=== PATIENT | male | born 1945 | race Caucasian/White ===

== ENCOUNTER → 2023-04-17 13:34 | Outpatient (REF) | payer MEDICARE, BC, SELFPAY | LOC: RAD 13:34 | PROVIDERS: ATTENDING PHYSICIAN Emergency Medicine; FAMILY PHYSICIAN Family Medicine | DX: S63.641A Sprain of metacarpophalangeal joint of right thumb, initial encounter (principal); S20.229A Contusion of unspecified back wall of thorax, initial encounter | CPT/HCPCS: 72072; 73140 ==

== ENCOUNTER 2023-09-21 19:06 | Emergency (ER) | payer MEDICARE, BC, SELFPAY ==
[2023-09-21 19:18] VITALS: BP 152/86
[2023-09-21 20:00] VITALS: BP 142/87
[2023-09-21 20:10] VITALS: BMI 23.1
[2023-09-21 22:11] LABS: % Basophils 0.5 % (0-2); % Eosinophils 1.5 % (0-6); % Immature Granulocytes 0.3 % (0-0.5); % Lymphocytes 9.9 % (20.5-51.1); % Neutrophils 80.8 % (42.2-75.2); Absolute Basophils 0.1 10^3/uL (0-0.2); Absolute Eosinophils 0.2 10^3/uL (0-0.7); Absolute Monocytes 0.7 10^3/uL (0.1-0.6); Absolute Neutrophils 8.3 10^3/uL (1.4-6.5); Hematocrit 37.1 % (39.0-52.0); Hemoglobin 12.6 g/dL (13.0-18.0); Mean Corpuscular Hgb 29.1 pg (27.0-31.0); Mean Corpuscular Volume 85.7 fL (80.0-94.0); Mean Platelet Volume 9.1 fL (7.4-10.4); Nucleated Red Blood Cells % 0 % (-); Platelet Count 201 10^3/uL (130-400); Red Blood Cell Count 4.33 10^6/uL (4.70-6.10); Urine Albumin Negative (Neg - Trace); Urine Bilirubin Negative (Negative); Urine Character Clear (Clear); Urine Color Yellow; Urine Glucose Negative (Negative); Urine Ketone Negative (Negative); Urine Leukocyte Negative (Negative); Urine Nitrite Negative (Negative); Urine Occult Blood Negative (Negative); Urine Specific Gravity 1.015 (<1.030); Urine Urobilinogen Negative (Neg - 1+); White Blood Cell Count 10.2 10^3/uL (4.8-10.8)
[2023-09-21 22:32] LABS: ALT (SGPT) 21 U/L (0-50); AST (SGOT) 31 U/L (17-59); Albumin 4.2 g/dl (3.5-5.0); Alkaline Phosphatase 75 U/L (38-126); Blood Urea Nitrogen 26 mg/dl (9-20); Carbon Dioxide 29 mmol/L (22-30); Chloride 105 mmol/L (98-107); Estimated Creatinine Clearance 62 ml/min; Glucose 127 mg/dl (70-99); Potassium 4.3 mmol/L (3.5-5.1); Sodium 138 mmol/L (135-145); Total Bilirubin 0.2 mg/dl (0.2-1.3); Total Protein 6.5 g/dl (6.3-8.2); eGFR > 60.00
--- NOTE | 2023-09-21 23:13 | ED.GENMED ---
History of Present Illness
General
Chief Complaint: Fall
Source: patient and spouse
Exam Limitations: dementia
Time Seen by Provider: 09/21/23 19:48
Nursing documentation reviewed up to this point in time: agreed with
History of Present Illness
History of Present Illness:
77-year-old male with Ana Lilia history of dementia hyperlipidemia presenting to the emergency department today after a fall he is unable to explain why he fell he does have short-term memory loss. This was not directly witnessed but the claims
that he she heard a thud that was in the room within a few seconds. He denies additional concerns at this point otherwise feels well.
Review of Systems
Review of Systems
Allergies reviewed?: Yes
All Other Systems: ROS reviewed and negative except as documented in HPI and ROS
Phy Exam
Physical Exam
Physical Exam:
GENERAL: Alert , in no apparent distress
EYE: pupils equal and reactive
NECK: Supple, no significant adenopathy.
ENT: o/p clr, mmm.
CARDIAC: Regular rate and rhythm .
LUNGS: Clear breath sounds bilaterally, no acute respiratory distress, no wheezes/rales/rhonchi
ABDOMEN: Soft, without focal tenderness, no r/g, no cvat
NEUROLOGICAL: Alert , no focal neuro deficits 5-5 upper and lower extremity strength normal sensation with palpating bilaterally normal finger-nose and glmt-kg-[id number] no pronator drift
SKIN: Warm and dry, skin intact.
MUSCULOSKELETAL: No edema, well perfused.
PSYCH: Normal and appropriate interaction.
Course
Orders/Labs/Results
Orders:
Orders
09/21/23 19:26
CT Cervical Spine W/o Iv Contr Urgent
Reason For Exam: fall
CT Head W/o Iv Contrast Urgent
Comment:
Reason For Exam: fall
09/21/23 21:45
EKG [Electrocardiogram (*1)] Urgent
Reason for Study: Syncope
09/21/23 21:46
EKG- Treatment ONCE
09/21/23 22:05
CBC/With Diff [Complete Blood Count/With Diff] Urgent
CMP [Comprehensive Metabolic Panel] Urgent
Urinalysis Reflex To Culture Urgent
Date Specimen was Collected: 09/21/23
Time Specimen was Collected: 22:02
Abnormal Lab Results
09/21/23
22:05
RBC 4.33 L 10^6/uL
(4.70-6.10)
Hgb 12.6 L g/dL
(13.0-18.0)
Hct 37.1 L %
(39.0-52.0)
Absolute Neuts (auto) 8.3 H 10^3/uL
(1.4-6.5)
Absolute Lymphs (auto) 1.0 L 10^3/uL
(1.2-3.4)
Absolute Monos (auto) 0.7 H 10^3/uL
(0.1-0.6)
Neutrophils % 80.8 H %
(42.2-75.2)
Lymphocytes % 9.9 L %
(20.5-51.1)
BUN 26 H mg/dl
(9-20)
Glucose 127 H mg/dl
(70-99)
09/21/23 22:05
09/21/23 22:05
Vital Signs
Initial and Last Documented VS:
Initial Vital Signs
Temp Pulse Resp BP Pulse Ox
98.5 F 60 18 152/86 97
09/21/23 19:18 09/21/23 19:18 09/21/23 19:18 09/21/23 19:18 09/21/23 19:18
Last Documented Vital Signs
Temp Pulse Resp BP Pulse Ox
98.5 F 60 18 142/87 96
09/21/23 19:18 09/21/23 20:00 09/21/23 20:09 09/21/23 20:00 09/21/23 19:59
MDM/Problems Addressed
MDM/Problems Addressed:
77-year-old male presenting to the emergency department today with concerns of ground-level fall. Unclear pretenses. Otherwise was feeling well just prior. On arrival here vital signs are normal patient in no distress no signs of significant
additional trauma labs potential dehydration otherwise labs unremarkable. Head CT and neck CT without emergent findings CT did show potential old lacunar infarct but no emergent findings. This was discussed thoroughly. Labs showing potential
dehydration with an elevated BUN to creatinine ratio otherwise labs unremarkable urinalysis normal. Patient well-appearing throughout ER stay stable for outpatient management return precautions given.
*Critical Care Note
Total Time (30-74mins, 75-104mins- exclusive of procedures): Not Applicable
ED Attending Note
-
Portions of this chart may have been created with voice recognition software.� Occasional wrong word or��sound alike� substitutions may have occurred due to the inherent limitations of voice recognition software.
Discharge Plan
Departure
Patient Disposition: Home (Routine Discharge)
Date of Disposition: 09/21/23
Time of Disposition: 23:20
Patient with high blood pressure during this ER visit?: No
Condition: Good
Covid-19: Not Applicable
Discharge Problem:
Fall, Dehydration
Instructions: Preventing falls in adults
Prescriptions:
No Action
ascorbic acid (vitamin C) [Vitamin C] 1,000 MG tablet
1,000 mg PO DAILY
niacin (inositol niacinate) [Niacin No Flush] 400 MG capsule
400 mg PO DAILY
cyanocobalamin (vitamin B-12) 1,000 MCG tablet
1,000 mcg PO DAILY
ibuprofen 400 MG tablet
400 mg PO PRN PRN (Reason: pain)
omega 0-pjc-ngd-fish oil [Fish Oil] 1 EACH capsule
2 ea PO DAILY
qy-unk-kunoc-M8-dxdixyz-awjhoh [Men 50 Plus Multivitamin] 1 EACH tablet
1 ea PO DAILY
Flaxseed
1 t PO DAILY
Glucosamine HCl/MSM
2 tab PO DAILY
sennosides [senna] 1 TABLET tablet
2 tab PO BID 0RF
acetaminophen 325 MG tablet
650 mg PO Q4HPRN PRN (Reason: for mild pain or fever >100.4F) 0RF
prednisone 10 MG tablet
10 mg PO ONCE Qty: 3 0RF
Rx Instructions:
tab 2 11 tab 1 11/29
magnesium hydroxide 30 ML suspension
30 ml PO DAILYPRN PRN (Reason: constipation) 0RF
aspirin 325 MG tablet,delayed release (DR/EC)
325 mg PO DAILY 0RF
docusate sodium 100 MG capsule
100 mg PO BID 0RF
alum-mag hydroxide-simeth [Mag-Al Plus] 30 ML suspension
30 ml PO Q4HPRN PRN (Reason: INDIGESTION) 0RF
oxycodone 5 MG tablet
1 - 2 tab PO Q4HPRN PRN (Reason: mod pain) Qty: 80 0RF
ibuprofen 200 MG tablet
400 mg PO Q6HPRN PRN (Reason: pain) Qty: 1 0RF
Referrals:
Rebceca Santa DO [Family Provider] -
Activity Restrictions/Additional Instructions:
You came to the emergency department today with concerns of a fall. Here you were found to be potentially dehydrated. Please stay hydrated at home and return to the emergency department for any worsening, new or concerning symptoms. Additionally
please follow closely with the neurologist
Interventions
Interventions:
*Risk Screen - Suicide Last Done: 09/21/23 19:18
*General Assessment Last Done: 09/21/23 19:18
*Neglect/Abuse Screening Last Done: 09/21/23 19:18
ED- Fall Risk Assessment Last Done: 09/21/23 19:18
*ED COVID-19 Vaccine History Last Done: 09/21/23 19:18
ED-Musculoskeletal Assessment Last Done: 09/21/23 20:08
ED- Neurological Assessment Last Done: 09/21/23 20:08
ED-Skin Assessment Last Done: 09/21/23 20:08
Discharge Date and Time
Print Language: DJIBOUTIAN
[2023-09-22] VITALS: BP 163/91
== END 2023-09-22 | disposition home or self-care (01) ==
LOC: EMR 19:06
PROVIDERS: Physician Assistant; EMERGENCY PHYSICIAN Emergency Medicine; FAMILY PHYSICIAN Family Medicine
DX: S09.90XA Unspecified injury of head, initial encounter (principal); E86.0 Dehydration; W19.XXXA Unspecified fall, initial encounter; F03.90 Unspecified dementia, unspecified severity, without behavioral disturbance, psychotic disturbance, mood disturbance, and anxiety; E78.5 Hyperlipidemia, unspecified
CPT/HCPCS: 99285; 70450; 72125; 80053; 81003; 85025; 93005

== ENCOUNTER 2024-06-08 14:16 | Emergency (ER) | payer OTHER, SELFPAY ==
[2024-06-08] MEDS: ADACEL 0.5 ML IM (15:51)
--- NOTE | 2024-06-08 15:58 | ED.GENMED ---
History of Present Illness
<Sal Baez Jr., PA-C - Last Filed: 06/08/24 16:42>
General
Chief Complaint: Fall
Source: patient, spouse and family
Exam Limitations: dementia
Time Seen by Provider: 06/08/24 14:42
Nursing documentation reviewed up to this point in time: agreed with
History of Present Illness
History of Present Illness:
78-year-old male with Ana Lilia history of Alzheimer's dementia, hyperlipidemia presenting to the emergency department after a fall that was not specifically witnessed though the was there at the scene and immediately able to help. He believes
that he lost his footing while gardening. He does have poor balance at baseline according to the and patient himself. Pain is only to the face. Does not take any blood thinners. Does have a mild headache. No neck pain. No numbness or
weakness. No chest pain no extremity discomfort.
Review of Systems
<Sal Baez Jr., PA-C - Last Filed: 06/08/24 16:42>
Review of Systems
Allergies reviewed?: Yes
All Other Systems: ROS reviewed and negative except as documented in HPI and ROS
Phy Exam
<Sal Baez Jr., PA-C - Last Filed: 06/08/24 16:42>
Physical Exam
Physical Exam:
GENERAL: Alert , in no apparent distress
EYE: pupils equal and reactive
NECK: Supple, no significant adenopathy.
ENT: 1 cm laceration V-shaped on the nasal bridge no nasal septal hematoma normal posterior pharynx o/p clr, mmm.
CARDIAC: Regular rate and rhythm .
LUNGS: Clear breath sounds bilaterally, no acute respiratory distress, no wheezes/rales/rhonchi
ABDOMEN: Soft, without focal tenderness, no r/g, no cvat
NEUROLOGICAL: Alert and oriented, no focal neuro deficits
SKIN: Warm and dry, skin intact.
MUSCULOSKELETAL: No edema, well perfused.
PSYCH: Normal and appropriate interaction.
Course
<Sal Baez Jr., PA-C - Last Filed: 06/08/24 16:42>
Orders/Labs/Results
Orders:
Orders
06/08/24 14:42
CT Cervical Spine W/o Iv Contr Urgent
Comment:
Reason For Exam: fall hit head unwitnessed
CT Facial Bones W/o Iv Contras Urgent
Comment:
Reason For Exam: facial injury fall
CT Head W/o Iv Contrast Urgent
Comment:
Reason For Exam: fall hit head
06/08/24 15:40
Tetanus/Diphth/Acelpertussis [Adacel] 0.5 ml IM .ONCE ONE
06/08/24 16:00
Cephalexin Monohydrate [Keflex] 500 mg PO NOW STA
06/08/24 16:28
Vital Signs- Treatment ONCE
Frequency: Once
06/08/24 16:40
CR Hand - Right Min 3 Views Urgent
Comment:
Reason For Exam: hand injury from fall
Vital Signs
Initial and Last Documented VS:
Initial Vital Signs
Pulse Resp Pulse Ox
72 18 97
06/08/24 14:19 06/08/24 14:19 06/08/24 14:19
Last Documented Vital Signs
Temp Pulse Resp BP Pulse Ox
97.7 F 56 18 151/84 98
06/08/24 16:40 06/08/24 16:40 06/08/24 16:40 06/08/24 16:40 06/08/24 16:40
<Rajesh Saravia PA-C - Last Filed: 06/08/24 18:19>
Orders/Labs/Results
Orders:
Orders
06/08/24 14:42
CT Cervical Spine W/o Iv Contr Urgent
Comment:
Reason For Exam: fall hit head unwitnessed
CT Facial Bones W/o Iv Contras Urgent
Comment:
Reason For Exam: facial injury fall
CT Head W/o Iv Contrast Urgent
Comment:
Reason For Exam: fall hit head
06/08/24 15:40
Tetanus/Diphth/Acelpertussis [Adacel] 0.5 ml IM .ONCE ONE
06/08/24 16:00
Cephalexin Monohydrate [Keflex] 500 mg PO NOW STA
06/08/24 16:28
Vital Signs- Treatment ONCE
Frequency: Once
06/08/24 16:40
CR Hand - Right Min 3 Views Urgent
Comment:
Reason For Exam: hand injury from fall
Vital Signs
Initial and Last Documented VS:
Initial Vital Signs
Pulse Resp Pulse Ox
72 18 97
06/08/24 14:19 06/08/24 14:19 06/08/24 14:19
Last Documented Vital Signs
Temp Pulse Resp BP Pulse Ox
97.7 F 56 18 151/84 98
06/08/24 16:40 06/08/24 16:40 06/08/24 16:40 06/08/24 16:40 06/08/24 16:40
Procedures
<Sal Baez Jr., PA-C - Last Filed: 06/08/24 16:42>
Laceration Closure
Nasal bridge:
Status of Wound: clean
Size of Wound in cm: 1
Description of Wound Edges: sharp
Preparation: cleaned with saline
Anesthesia: 2% Lidocaine
Revision/Debridement: routine- no revision and irrigate-direct pressure
Wound exploration: explored to base- no FB
Type of Closure: single layer closure and interrupted sutures
Skin Closure Material: 5-0 chromic gut
Number of sutures: 3
<Sal Baez Jr., PA-C - Last Filed: 06/08/24 16:42>
MDM/Problems Addressed
MDM/Problems Addressed:
78-year-old male presenting to the emergency department today with concerns of mechanical fall prior to arrival hitting his face did not lose consciousness no nausea vomiting has mild headache. No numbness or weakness. No neck pain. Here patient
has injury to the nasal bridge with laceration. Area was cleaned thoroughly to its base no signs of foreign body. 3 stitches were placed these are absorbable stitches. He was given updated tetanus shot and also started on empiric antibiotics as
the and patient was concerned that he fell onto dirt and may have had a contaminated wound. CT scan of the head neck and face was obtained.
<Rajesh Saravia PA-C - Last Filed: 06/08/24 18:19>
*Critical Care Note
Total Time (30-74mins, 75-104mins- exclusive of procedures): Not Applicable
<Rajesh Saravia PA-C - Last Filed: 06/08/24 18:19>
Update Note
Update Note:
1750: Followed up on CT results after signout, imaging shows a mild nondisplaced nasal bone fracture, patient be started on empiric antibiotics due to open fracture, otherwise imaging unremarkable, hand x-rays reassuring. Discharged in stable
condition
ED Attending Note
<Sal Baez Jr., PA-C - Last Filed: 06/08/24 16:42>
-
Portions of this chart may have been created with voice recognition software.� Occasional wrong word or��sound alike� substitutions may have occurred due to the inherent limitations of voice recognition software.
Discharge Plan
Departure
Patient Disposition: Home (Routine Discharge)
Date of Disposition: 06/08/24
Time of Disposition: 17:48
Patient with high blood pressure during this ER visit?: No
Condition: Good
Covid-19: Not Applicable
Discharge Problem:
Laceration of nose, Fall, Abrasion of hand, right
Instructions: Wound Care (DC), Laceration Repair With Stitches (DC), Preventing falls in adults
Prescriptions:
New
cephalexin 500 mg capsule
500 mg PO TID 3 Days Qty: 9 0RF
Referrals:
UNKNOWN - PT DOES,NOT KNOW [Unknown Provider] -
Activity Restrictions/Additional Instructions:
You came to the emergency department today with concerns after a fall. Here you have a reassuring assessment. You had the small laceration to your nasal bridge closed with 3 dissolving stitches. Please keep the area clean covered and start to put
ointment on it after 1 week to help the stitches dissolve. Return for any worsening, new or concerning symptoms.
Interventions
Interventions:
*Risk Screen - Suicide Last Done: 06/08/24 14:19
*General Assessment Last Done: 06/08/24 14:19
*Neglect/Abuse Screening Last Done: 06/08/24 15:14
*ED- Fall Risk Assessment Last Done: 06/08/24 15:14
*ED COVID-19 Vaccine History Last Done: 06/08/24 15:06
*Nursing Disposition Last Done: 06/08/24 18:11
ED-Musculoskeletal Assessment Last Done: 06/08/24 15:14
ED- Neurological Assessment Last Done: 06/08/24 15:14
ED-Skin Assessment Last Done: 06/08/24 15:14
Discharge Date and Time
Discharge Date/Time: 06/08/24 18:14
Print Language: [place]LAND[place]
[2024-06-08] MEDS: KEFLEX 500 MG PO (16:19)
[2024-06-08 16:40] VITALS: BP 151/84
== END 2024-06-08 18:14 | disposition home or self-care (01) ==
LOC: EMR 14:16
PROVIDERS: EMERGENCY PHYSICIAN Emergency Medicine; FAMILY PHYSICIAN Family Medicine
DX: S01.21XA Laceration without foreign body of nose, initial encounter (principal); S60.511A Abrasion of right hand, initial encounter; S02.2XXA Fracture of nasal bones, initial encounter for closed fracture; W19.XXXA Unspecified fall, initial encounter; F02.80 Dementia in other diseases classified elsewhere, unspecified severity, without behavioral disturbance, psychotic disturbance, mood disturbance, and anxiety; G30.9 Alzheimer's disease, unspecified; E78.00 Pure hypercholesterolemia, unspecified
CPT/HCPCS: 99284; 12011; 70450; 70486; 72125; 73130; 90715

== ENCOUNTER 2024-08-24 03:58 | Emergency (ER) | payer OTHER, SELFPAY ==
[2024-08-24 03:59] VITALS: BP 154/99
[2024-08-24 04:01] VITALS: BP 153/99
[2024-08-24 04:37] LABS: Hematocrit 35.8 % (39.0-52.0); Hemoglobin 11.5 g/dL (13.0-18.0); Mean Corp Hgb Conc. 32.1 g/dL (33.0-37.0); Mean Corpuscular Volume 88.6 fL (80.0-94.0); Nucleated Red Blood Cells % 0 % (-); Platelet Count 203 10^3/uL (130-400); Red Cell Dist. Width 14.2 % (11.5-14.5)
[2024-08-24 04:49] LABS: ALT (SGPT) 59 U/L (0-50); AST (SGOT) 59 U/L (17-59); Albumin 4.0 g/dl (3.5-5.0); Alkaline Phosphatase 89 U/L (38-126); Blood Urea Nitrogen 34 mg/dl (9-20); Calcium 8.8 mg/dl (8.4-10.2); Carbon Dioxide 27 mmol/L (22-30); Chloride 111 mmol/L (98-107); Glucose 142 mg/dl (70-99); Potassium 4.4 mmol/L (3.5-5.1); Sodium 143 mmol/L (135-145); Total Protein 6.5 g/dl (6.3-8.2); eGFR > 60.00
--- NOTE | 2024-08-24 07:59 | ED.GENMED ---
History of Present Illness
General
Chief Complaint: Fall
Time Seen by Provider: 08/24/24 05:03
History of Present Illness
History of Present Illness:
78-year-old male presents to the emergency department from a nursing facility after an unwitnessed fall. Apparently EMS responded earlier in the evening and he was agitated and refused to be transported however eventually relented. He denies
knowledge of what happened, has had known history of dementia. Noted to have swelling and abrasion to the nose as well as pain to the left hand and the left chest wall.
Review of Systems
Review of Systems
Allergies reviewed?: Yes
All Other Systems: ROS reviewed and negative except as documented in HPI and ROS
Phy Exam
Physical Exam
Physical Exam:
GEN: Well appearing, NAD, WDWN
HEENT: Oral mucosa moist, no scleral icterus
Cardiac: Regular rate
Lung: No respiratory distress, no tachypnea
MSK: No gross deformity or injuries. No midline cervical, thoracic, or lumbar spine tenderness. No obvious swelling or bruising to the left hand. Tenderness to the left chest wall with no palpable deformities
Skin: Good color, no pallor or jaundice, no rashes
Neuro: AO x3, moves all extremities freely
Psych: Calm, cooperative
Course
Orders/Labs/Results
Orders:
Orders
08/24/24 04:15
CT Head W/o Iv Contrast Urgent
Comment:
Reason For Exam: unwitnessed fall
CR Hand - Left Min 3 Views Urgent
Comment:
Reason For Exam: L hand/wrist pain s/p fall
08/24/24 04:23
Complete Blood Count/With Diff Urgent
Comprehensive Metabolic Panel Urgent
08/24/24 07:28
CR Ribs-left 3 Vw W/pa Chest Urgent
Comment:
Reason For Exam: fall injury
Abnormal Lab Results
08/24/24
04:23
RBC 4.04 L 10^6/uL
(4.70-6.10)
Hgb 11.5 L g/dL
(13.0-18.0)
Hct 35.8 L %
(39.0-52.0)
MCHC 32.1 L g/dL
(33.0-37.0)
Absolute Lymphs (auto) 1.1 L 10^3/uL
(1.2-3.4)
Absolute Monos (auto) 1.0 H 10^3/uL
(0.1-0.6)
Lymphocytes % 13.1 L %
(20.5-51.1)
Monocytes % 11.1 H %
(1.7-9.3)
Chloride 111 H mmol/L
(98-107)
BUN 34 H mg/dl
(9-20)
Glucose 142 H mg/dl
(70-99)
ALT 59 H U/L
(0-50)
08/24/24 04:23
08/24/24 04:23
Vital Signs
Initial and Last Documented VS:
Initial Vital Signs
Temp Pulse Resp BP Pulse Ox
97.8 F 62 20 154/99 96
08/24/24 03:59 08/24/24 03:59 08/24/24 03:59 08/24/24 03:59 08/24/24 03:59
Last Documented Vital Signs
Temp Pulse Resp BP Pulse Ox
97.8 F 62 20 153/99 95
08/24/24 03:59 08/24/24 03:59 08/24/24 03:59 08/24/24 04:01 08/24/24 08:00
MDM/Problems Addressed
MDM/Problems Addressed:
CT of the head as well as x-ray of the left hand and chest/ribs are unremarkable. Patient noted to be ambulating frequently in the ED without difficulty. Will be discharged back to his facility in stable condition
*Pulse Oximetry
SaO2: 95
Oxygen Mode of Delivery: Room air
Patient hypoxic: no
*Critical Care Note
Total Time (30-74mins, 75-104mins- exclusive of procedures): Not Applicable
ED Attending Note
-
Portions of this chart may have been created with voice recognition software.� Occasional wrong word or��sound alike� substitutions may have occurred due to the inherent limitations of voice recognition software.
Discharge Plan
Departure
Patient Disposition: Home (Routine Discharge)
Date of Disposition: 08/24/24
Time of Disposition: 08:13
Patient with high blood pressure during this ER visit?: No
Discharge Problem:
Unwitnessed fall, Contusion of nose
Instructions: Preventing falls - ED discharge instructions
Prescriptions:
No Action
cephalexin 500 mg capsule
500 mg PO TID 3 Days Qty: 9 0RF
Referrals:
Farida White DO [Family Provider, Family Practice]
Interventions
Interventions:
*Risk Screen - Suicide Last Done: 08/24/24 04:16
*General Assessment Last Done: 08/24/24 04:16
*Neglect/Abuse Screening Last Done: 08/24/24 04:16
*ED- Fall Risk Assessment Last Done: 08/24/24 04:16
*ED COVID-19 Vaccine History Last Done: 08/24/24 04:16
ED-Musculoskeletal Assessment Last Done: 08/24/24 04:33
ED- Neurological Assessment Last Done: 08/24/24 04:33
ED-Skin Assessment Last Done: 08/24/24 04:33
Discharge Date and Time
Print Language: FAROESE
[2024-08-24 08:50] VITALS: BP 169/85
== END 2024-08-24 08:53 | disposition home or self-care (01) ==
LOC: EMR 03:58
PROVIDERS: Student in an Organized Health Care Education/Training Program; EMERGENCY PHYSICIAN Emergency Medicine; FAMILY PHYSICIAN Family Medicine
DX: S00.33XA Contusion of nose, initial encounter (principal); M79.642 Pain in left hand; R07.89 Other chest pain; W19.XXXA Unspecified fall, initial encounter; F03.90 Unspecified dementia, unspecified severity, without behavioral disturbance, psychotic disturbance, mood disturbance, and anxiety
CPT/HCPCS: 99284; 70450; 71101; 73130; 80053; 85025

== ENCOUNTER 2024-09-10 05:28 | Emergency (ER) | payer OTHER, SELFPAY ==
[2024-09-10 05:31] VITALS: BP 149/83
[2024-09-10 05:33] VITALS: BP 149/83
--- NOTE | 2024-09-10 06:01 | ED.GENMED ---
History of Present Illness
General
Chief Complaint: Fall
Time Seen by Provider: 09/10/24 05:59
History of Present Illness
History of Present Illness:
TIME OF INITIAL EVALUATION
- 6 AM
REVIEW OF OLD RECORDS
- I reviewed records, the patient has a history of dementia, melanoma, BPH status post TURP in 2011.
Note:
CHIEF COMPLAINT(S)
Fall with unknown cause.
HISTORY OF PRESENT ILLNESS
The patient is an 78-year-old male who presented following a fall at a memory care facility. According to his , the staff at [place] reported finding him on the ground, presumed he fell, but did not witness the fall. The patient has no
recollection of the event and does not typically experience fainting spells. He has fallen in the past. He denies experiencing chest pain, shortness of breath, headache, or any pain in his arms or legs.
The patient had a computed tomography (CT) scan of the brain ordered overnight to rule out intracranial hemorrhage.
PHYSICAL EXAM
General: Alert, no acute distress evident.
Skin: Warm, dry.
Head: There is a left parietal scalp abrasion with no hematoma
Neck: Trachea midline. Cervical spine collar in place upon arrival
Eyes, ears, nose, mouth, and throat: Oral mucosa moist.
Cardiovascular: Normal peripheral perfusion, no edema noted.
Respiratory: Respirations are non-labored, patient able to take deep breaths without difficulty.
Gastrointestinal : Abdomen nondistended.
Back: Normal range of motion, normal alignment.
Musculoskeletal: Normal range of motion, normal strength. Hips moved without pain indicating no fracture. There is no tenderness of the upper extremities.
Neurological: The patient follows commands, is awake and alert, but memory is impaired consistent with history of dementia
Psychiatric: Somewhat of a flat affect
PLAN
Await radiologists review of imaging studies, specifically the CT scan of the brain. Depending on the results, plan to arrange for the patient�s transportation back to [place] if there are no findings necessitating further medical intervention.
DIFFERENTIAL DIAGNOSIS
The Differential Diagnosis includes, in no particular order and is not limited to:
1. Syncope
2. Transient Ischemic Attack
3. Orthostatic Hypotension
4. Vestibular Dysfunction
5. Cardiac Arrhythmia
6. Hypoglycemia
7. Dehydration
8. Seizure
9. Falls due to balance disorder
10. Cognitive Dysfunction from underlying dementia.
RADIOLOGY
- CT head and C-spine personally reviewed
UPDATE
-SUMMARY OF ENCOUNTER
The patient, an 78-year-old male, presented following a fall at a memory care facility. A CT scan was conducted to rule out intracranial hemorrhage. The radiologist noted a very small area of concern, possibly indicating a small subdural hematoma on
the left side of the brain. The patient does not take any anti-platelet or anticoagulation therapy. He is reportedly acting as his normal self, aside from some anxiety for which he has taken lorazepam in the past. Given the finding and the facilitys
non-trauma status, a decision needed to be made about whether to transfer the patient to a trauma center or manage him locally with repeat imaging.
MANAGEMENT OF THE PATIENTS CARE WAS DISCUSSED WITH
Discussion with a neurosurgeon from [place], Dr. Villalpando, was planned to decide on further management, including the possibility of transferring the patient to a trauma center or repeating a CT scan locally.
PLAN
The plan involves discussing with a neurosurgeon regarding the best course of action: whether to transfer the patient to a trauma center for further management or to obtain a repeat CT scan at the current facility. The patients stability and absence
of anti-coagulation therapy are factors in the decision-making process.
INDEPENDENT REVIEW OF LABS AND INTERPRETATION OF TESTS
My independent CT scan interpretation is a small area of concern possibly indicating a subdural hematoma on the left side of the brain.
MEDICAL DECISION MAKING
-Complexity of Data Reviewed: Chronic conditions affecting care include cognitive dysfunction due to underlying dementia. Differential Diagnosis includes syncope, transient ischemic attack, orthostatic hypotension, vestibular dysfunction, cardiac
arrhythmia, hypoglycemia, dehydration, seizure, falls due to balance disorder, and cognitive dysfunction from underlying dementia.
-Data:
Category [address] scan was reviewed, showing a possible small subdural hematoma. Further discussion with an independent historian (the patients ) provided additional context for the patients baseline behavior and history.
Category 3
Discussion of management is planned with a neurosurgeon regarding potential transfer versus repeat CT scan.
-Risk:
Consideration of Admission/Observation: Escalation of care including admission/observation was considered given the complexity and risk of the patients presenting complaint and exam findings. However, ultimately a decision on outpatient management
will depend on the neurosurgical consultation. The patient is stable and reliable for follow-up, and no acute life-threatening processes have been identified so far.
DIAGNOSIS
Possible small subdural hematoma (ICD-10 code: S06.5X0).
I reassessed patient at 12:45 PM. Condition is essentially unchanged. Repeat CT shows stable very small subdural. will drive him back.
Phy Exam
Physical Exam
Physical Exam:
See HPI
Course
Orders/Labs/Results
Orders:
Orders
09/10/24 05:39
CT Cervical Spine W/o Iv Contr Urgent
Reason For Exam: fall
CT Head W/o Iv Contrast Urgent
Comment:
Reason For Exam: fall
09/10/24 11:30
CT Head W/o Iv Contrast Urgent
Comment:
Reason For Exam: fall
Vital Signs
Initial and Last Documented VS:
Initial Vital Signs
BP
149/83
09/10/24 05:31
Last Documented Vital Signs
Temp Pulse Resp BP Pulse Ox
37.1 C 60 20 132/68 93
09/10/24 05:33 09/10/24 05:33 09/10/24 05:33 09/10/24 10:00 09/10/24 10:30
*Pulse Oximetry
SaO2: 98
Oxygen Mode of Delivery: Room air
Patient hypoxic: no
*Critical Care Note
Total Time (30-74mins, 75-104mins- exclusive of procedures): Not Applicable
ED Attending Note
-
Portions of this chart may have been created with voice recognition software.� Occasional wrong word or��sound alike� substitutions may have occurred due to the inherent limitations of voice recognition software.
Discharge Plan
Departure
Patient Disposition: Home (Routine Discharge)
Date of Disposition: 09/10/24
Time of Disposition: :25
Patient with high blood pressure during this ER visit?: Yes
Discharge Problem:
Subacute subdural hematoma
Instructions: Head Injury in Adults (DC), BLOOD PRESSURE
Prescriptions:
No Action
ascorbic acid (vitamin C) [Vitamin C] 1,000 mg Tablet
1,000 mg PO DAILY
acetaminophen [Tylenol] 325 mg Tablet
650 mg PO Q4HPRN PRN (Reason: mild pain)
trazodone 50 mg Tablet
50 mg PO HS
meloxicam [Mobic] 15 mg Tablet
15 mg PO DAILY
sertraline 100 mg Tablet
100 mg PO BID
loperamide 2 mg Tablet
2 mg PO Q6HPRN PRN (Reason: diarrhea)
lorazepam [Ativan] 1 mg Tablet
1 mg PO TID
magnesium oxide 250 mg magnesium Tablet
250 mg PO DAILY
glucosamine-chondroitin [Osteo Bi-Flex] 250-200 mg Tablet
1 tab PO BID
memantine 5 mg Tablet
5 mg PO BID
cholecalciferol (vitamin D3) [Vitamin D3] 25 mcg (1,000 unit) Tablet
25 mcg PO DAILY
rivastigmine 9.5 mg/24 hour Patch 24 Hour
9.5 mg TRANSDERMAL DAILY
Lorazepam Gel
1 applic topical Q6HPRN PRN (Reason: anixety)
Referrals:
UNKNOWN - PT DOES,NOT KNOW [Family Provider]
Activity Restrictions/Additional Instructions:
CAT scan of the brain suggests a very small subdural hematoma. I spoke to the neurosurgeon and therefore we did another CAT scan which is essentially unchanged and is 'stable'. Return here if worse or other concerns. He should not take any
aspirin, Plavix, or any blood thinners such as Coumadin, Xarelto, or Eliquis (none of these are currently on his medication list).
Interventions
Interventions:
*Risk Screen - Suicide Last Done: 09/10/24 05:33
*General Assessment Last Done: 09/10/24 05:33
*Neglect/Abuse Screening Last Done: 09/10/24 05:33
*ED- Fall Risk Assessment Last Done: 09/10/24 05:33
*ED COVID-19 Vaccine History Last Done: 09/10/24 05:33
ED-Musculoskeletal Assessment Last Done: 09/10/24 05:50
ED- Neurological Assessment Last Done: 09/10/24 05:50
ED-Skin Assessment Last Done: 09/10/24 05:50
Discharge Date and Time
Print Language: SPANISH
[2024-09-10 09:00] VITALS: BP 161/88
[2024-09-10 10:00] VITALS: BP 132/68
== END 2024-09-10 13:15 | disposition home or self-care (01) ==
LOC: EMR 05:28
PROVIDERS: EMERGENCY PHYSICIAN Emergency Medicine
DX: S06.5XAA Traumatic subdural hemorrhage with loss of consciousness status unknown, initial encounter (principal); W19.XXXA Unspecified fall, initial encounter; F03.90 Unspecified dementia, unspecified severity, without behavioral disturbance, psychotic disturbance, mood disturbance, and anxiety; N40.0 Benign prostatic hyperplasia without lower urinary tract symptoms; Z85.820 Personal history of malignant melanoma of skin; Z86.73 Personal history of transient ischemic attack (TIA), and cerebral infarction without residual deficits; Z90.79 Acquired absence of other genital organ(s)
CPT/HCPCS: 99284; 70450; 72125

== ENCOUNTER 2024-09-27 22:46 | Emergency (ER) | payer OTHER, SELFPAY ==
[2024-09-27 22:50] VITALS: BP 152/89
[2024-09-27 23:00] VITALS: BP 142/90
--- NOTE | 2024-09-27 23:23 | ED.GENMED ---
History of Present Illness
<Jane Virgen PA-C - Last Filed: 09/27/24 23:24>
General
Chief Complaint: Fall
Time Seen by Provider: 09/27/24 23:16
<Nghia Winston DO - Last Filed: 09/28/24 02:28>
General
Source: patient and spouse
Exam Limitations: dementia
History of Present Illness
History of Present Illness:
Note:
CHIEF COMPLAINT(S)
Fall with head injury.
HISTORY OF PRESENT ILLNESS
The patient is an 78-year-old male with a history of dementia, presenting after a fall that occurred approximately a week ago on Saturday. He initially sustained a bump to the left side of his head, which led to bruising around the left eye. Over
time, the bruising worsened but has since started healing, now presenting as yellow discoloration consistent with resolving ecchymosis.
The patient did not initially visit the hospital after the fall last week. The current hospital visit was prompted by a recent fall earlier today, after which the patient appeared more lethargic and sluggish than usual, a state that might be
confused with sedation from his routine evening medication. His expressed concern over his condition, which led to his hospital visit.
Upon examination, the patient has a known history of repeated falls. Previous medical evaluations showed some intracranial findings between the skull and the brain, but further evaluation is required to compare with current imaging. CT scans
performed revealed acute bleeding, indicating a potential acute issue.
No significant bleeding diathesis is known, as he is not on anticoagulation therapy. The patient�s current condition also involves a small abrasion over the upper left scalp and a laceration on the left elbow.
ADDITIONAL HISTORY OBTAINED FROM SOURCES OTHER THAN THE PATIENT
Information was provided by the patient�s . She confirmed that the patient has a history of dementia and described the sequence of events following his falls. She reported an initial fall a week ago as well as todays incident, which was why they
sought medical attention.
EXTERNAL RECORDS REVIEWED
The patients CT scan was compared with a prior scan from a visit on September 10. There was noted previous intracranial observation on the prior scan.
CHRONIC MEDICAL CONDITIONS SIGNIFICANTLY AFFECTING CARE
Dementia.
REVIEW OF SYSTEMS
- Neurological: History of dementia; more lethargic than usual.
- Integumentary: Healing ecchymosis around left eye; abrasion on the upper left scalp; skin tear on the left elbow.
PHYSICAL EXAM
General: Alert, but somewhat somnolent.
Skin: Warm, dry, with healing ecchymosis in the left periorbital area and an abrasion on the upper left scalp.
Head: + Abrasion as noted. No new deformities appreciated.
Neck: Supple, trachea midline, no midline step-offs or tenderness noted.
Cardiovascular: Normal peripheral perfusion, no edema.
Respiratory: Respirations are non-labored.
Gastrointestinal: Abdomen nondistended, no tenderness noted.
Back: Normal range of motion, no deformities or tenderness noted.
Musculoskeletal: Normal ROM, normal strength, small skin tear noted on the left elbow.
Neurological: Moves all four extremities equally, no focal neurological deficits observed.
Psychiatric: Cooperative, but somnolent; known history of dementia affecting baseline cognition.
PLAN
- Compare the current head CT scan with previous imaging to assess any changes or progression.
- Monitor neurological status closely, especially given the patients altered level of consciousness and history of dementia.
- Continue to manage wound care for skin abrasions.
- Consider a follow-up with primary care or neurology for dementia management and fall prevention strategies.
DIFFERENTIAL DIAGNOSIS
The Differential Diagnosis includes, in no particular order and is not limited to:
1. Intracranial hemorrhage
2. Subdural hematoma
3. Traumatic brain injury
4. Dizziness due to medications
5. Dementia-related factors
6. Sedative effect of evening medications
7. Orthostatic hypotension
8. Hemorrhagic stroke
9. Post-concussive syndrome
10. Dehydration or electrolyte imbalance.
CARE-UPDATE
09/27/24 - 23:[address] scan reveals left-sided subdural hematoma with acute components. Consultation with cardiology confirms diagnosis of acute on chronic subdural hematoma.
CARE-UPDATE
09/28/24 - 00:24
Consultation with the trauma team at the [facility] confirmed acceptance of the patient for further management. Transfer arrangements are in progress.
Disposition:
SUMMARY OF ENCOUNTER
An 78-year-old male presented after a fall, with an acute on chronic subdural hematoma. The patient exhibited focal motor deficits and appeared somewhat sleepy but was easily arousable. The patients noted this is typical behavior at night due
to his medications. There was no anticoagulation therapy involved with this patient. A cervical collar was applied for the patients transport to ensure stability during transfer, pending the CT scan reading by radiology.
DISPOSITION
Transfer
MANAGEMENT OF THE PATIENTS CARE WAS DISCUSSED WITH
Trauma surgery at the [facility], who accepted the patient for transfer.
PLAN
Transfer the patient to the [facility] for further management of the subdural hematoma.
INDEPENDENT REVIEW OF LABS AND INTERPRETATION OF TESTS
My independent interpretation of the CT scan indicates the presence of a subdural hematoma with acute components.
MEDICAL DECISION MAKING
-Complexity of Data Reviewed:
Chronic conditions affecting care included dementia, leading to recurrent falls. Differential Diagnosis considered were:
1. Intracranial hemorrhage
2. Subdural hematoma
3. Traumatic brain injury
4. Dizziness due to medications
5. Dementia-related factors
6. Sedative effect of evening medications
7. Orthostatic hypotension
8. Hemorrhagic stroke
9. Post-concussive syndrome
10. Dehydration or electrolyte imbalance
-Data:
Category 1
Clinical information was obtained from an independent historian, specifically the patient�s .
Category 3
Discussion of management with trauma surgery at the [facility] for transfer and further trauma care.
DIAGNOSIS
Subdural hematoma, chronic (ICD-10: I62.03)
Traumatic brain injury (ICD-10: S06.2X9A)
C5 osteophyte fracture
Update Case discussed with radiology who reports a C5 osteophyte fracture. Case was again discussed with trauma and patient information updated. Patient did have a c-collar in place
Phy Exam
<Nghia Winston DO - Last Filed: 09/28/24 02:28>
Physical Exam
Physical Exam:
.
Course
<Jane Virgen PA-C - Last Filed: 09/27/24 23:24>
Orders/Labs/Results
Orders:
Orders
09/27/24 22:49
CT Head W/o Iv Contrast Urgent
Comment:
Reason For Exam: Fall w/ headstrike
09/28/24 00:01
CT Cervical Spine W/o Iv Contr Urgent
Comment:
Reason For Exam: fall
Vital Signs
Initial and Last Documented VS:
Initial Vital Signs
Temp Pulse Resp BP Pulse Ox
97.5 F 62 18 152/89 100
09/27/24 22:50 09/27/24 22:50 09/27/24 22:50 09/27/24 22:50 09/27/24 22:50
Last Documented Vital Signs
Temp Pulse Resp BP Pulse Ox
97.5 F 60 18 112/72 98
09/27/24 22:50 09/28/24 01:15 09/28/24 01:15 09/28/24 01:00 09/28/24 01:15
<Nghia Winston DO - Last Filed: 09/28/24 02:28>
Orders/Labs/Results
Orders:
Orders
09/27/24 22:49
CT Head W/o Iv Contrast Urgent
Comment:
Reason For Exam: Fall w/ headstrike
09/28/24 00:01
CT Cervical Spine W/o Iv Contr Urgent
Comment:
Reason For Exam: fall
Vital Signs
Initial and Last Documented VS:
Initial Vital Signs
Temp Pulse Resp BP Pulse Ox
97.5 F 62 18 152/89 100
09/27/24 22:50 09/27/24 22:50 09/27/24 22:50 09/27/24 22:50 09/27/24 22:50
Last Documented Vital Signs
Temp Pulse Resp BP Pulse Ox
97.5 F 60 18 112/72 98
09/27/24 22:50 09/28/24 01:15 09/28/24 01:15 09/28/24 01:00 09/28/24 01:15
<Jane Virgen PA-C - Last Filed: 09/27/24 23:24>
*Pulse Oximetry
SaO2: 100
Oxygen Mode of Delivery: Room air
<Nghia Winston DO - Last Filed: 09/28/24 02:28>
*Pulse Oximetry
Patient hypoxic: no
*Bridge Painter Helper Interpretation
Rate: normal
Interpretation: normal
Rhythm: sinus
*Critical Care Note
Total Time (30-74mins, 75-104mins- exclusive of procedures): 40 minutes
ED Attending Note
<Jane Virgen PA-C - Last Filed: 09/27/24 23:24>
-
Portions of this chart may have been created with voice recognition software.� Occasional wrong word or��sound alike� substitutions may have occurred due to the inherent limitations of voice recognition software.
Discharge Plan
Departure
Patient Disposition: Acute Care Hospital
Date of Disposition: 09/28/24
Time of Disposition: 00:17
Discharge Problem:
Acute subdural hematoma, C5 osteophyte fracture
Prescriptions:
No Action
ascorbic acid (vitamin C) [Vitamin C] 1,000 mg Tablet
1,000 mg PO DAILY
acetaminophen [Tylenol] 325 mg Tablet
650 mg PO Q4HPRN PRN (Reason: mild pain)
trazodone 50 mg Tablet
50 mg PO HS
meloxicam [Mobic] 15 mg Tablet
15 mg PO DAILY
sertraline 100 mg Tablet
100 mg PO BID
loperamide 2 mg Tablet
2 mg PO Q6HPRN PRN (Reason: diarrhea)
lorazepam [Ativan] 1 mg Tablet
1 mg PO TID
magnesium oxide 250 mg magnesium Tablet
250 mg PO DAILY
glucosamine-chondroitin [Osteo Bi-Flex] 250-200 mg Tablet
1 tab PO BID
memantine 5 mg Tablet
5 mg PO BID
cholecalciferol (vitamin D3) [Vitamin D3] 25 mcg (1,000 unit) Tablet
25 mcg PO DAILY
rivastigmine 9.5 mg/24 hour Patch 24 Hour
9.5 mg TRANSDERMAL DAILY
Lorazepam Gel
1 applic topical Q6HPRN PRN (Reason: anixety)
Super Beta Prostate Advanced
1 cap PO BID
Referrals:
Farida White DO [Family Provider, Family Practice]
Hospital Transfer
Other hospital: [facility]
I certify that the patient requires transfer: Yes
Discussed case with accepting physician: Kimberlee
Reason for transfer: higher level of care and specialties available
Interventions
Interventions:
*Risk Screen - Suicide Last Done: 09/27/24 22:50
*General Assessment Last Done: 09/27/24 22:50
*Neglect/Abuse Screening Last Done: 09/27/24 22:50
*ED- Fall Risk Assessment Last Done: 09/27/24 22:50
*ED COVID-19 Vaccine History Last Done: 09/27/24 22:50
*Nursing Disposition Last Done: 09/28/24 01:15
ED-Musculoskeletal Assessment Last Done: 09/27/24 23:00
ED- Neurological Assessment Last Done: 09/27/24 23:00
ED-Skin Assessment Last Done: 09/27/24 23:00
Discharge Date and Time
Discharge Date/Time: 09/28/24 01:15
Print Language: MALAGASY
[2024-09-28 01:00] VITALS: BP 112/72
== END 2024-09-28 01:15 | disposition short-term general hospital (02) ==
LOC: EMR 22:46
PROVIDERS: EMERGENCY PHYSICIAN Emergency Medicine; FAMILY PHYSICIAN Family Medicine
DX: S06.5X0A Traumatic subdural hemorrhage without loss of consciousness, initial encounter (principal); S12.400A Unspecified displaced fracture of fifth cervical vertebra, initial encounter for closed fracture; F03.90 Unspecified dementia, unspecified severity, without behavioral disturbance, psychotic disturbance, mood disturbance, and anxiety; R29.6 Repeated falls; Z91.81 History of falling; W18.39XA Other fall on same level, initial encounter; Y92.129 Unspecified place in nursing home as the place of occurrence of the external cause
CPT/HCPCS: 99285; 70450; 72125